=== PATIENT | male | born 1940 | race Caucasian/White ===

== ENCOUNTER 2016-07-02 16:24 | Inpatient (IN) | payer MEDICARE ==
[~2016-07-02] VITALS: Ht 175.3 cm; Wt 91.4 kg
[2016-07-02 16:26] VITALS: BP 189/89; PULSE 55; RESP 17; TEMP 98.6; O2SAT 96
[2016-07-02 16:34] VITALS: RESP 17; O2SAT 97
--- NOTE | 2016-07-02 16:51 | PD ---
HPI Chief Complaint: Eye Problems/Injury Time Seen by Provider: 16:30 Travel History International Travel<30 days: No Contact w/Intl Traveler<30days: No Traveled to known affect area: No History of Present Illness HPI Patient is a 76-year-old male with history of coronary disease, A. fib, hypertension, hyperlipidemia,, who presents to emergency room from the [place] for evaluation of CVA. Patient reports that he has history of hemorrhagic stroke in the past, reports that he had his stroke on January 23, 1996. Patient reports that since yesterday afternoon around 2 PM, he has lost all his peripheral vision. Patient reports that he was watching TV when he lost his peripheral vision. Patient reports that since yesterday, he has been walking to the [place], reports that he has had pain around his eyes. Patient denies any weakness or numbness at this time. Reports that his vision improves mildly throughout the day, reports that he woke up today with peripheral vision loss. Patient reports that he went to the [place] for evaluation, reports that he was sent to the negative turner for an eye exam. Patient reports that he had his eyes dilated and evaluated by the negative turner, reports that his eyes were fine, reports concern for possible CVA. PFSH Past Medical History Hx Anticoagulant Therapy: Yes Cerebrovascular Accident: Yes Social History Tobacco Use: No Allergies-Medications (Allergen,Severity, Reaction): Coded Allergies: Demerol (Verified Allergy, Intermediate, Hives, 07/02/16) Reported Meds & Prescriptions Reported Meds & Active Scripts Active Reported Travatan Z Opth Drops (Travoprost) 0.004 % Soln 1 Drop EACH EYE HS Lisinopril 20 Mg Tab 20 Mg PO DAILY Pravastatin 40 Mg Tab 40 Mg PO HS Omeprazole 20 Mg Cap 20 Mg PO DAILY Alavert (Loratadine) 10 Mg Tab 10 Mg PO DAILY Mobic (Meloxicam) 15 Mg Tab 15 Mg PO DAILY Flonase Nasal Dexter (Fluticasone Nasal Dexter) 50 Mcg/Act Dexter 2 Dexter EACH NARE HS Metoprolol Tartrate 50 Mg Tab 50 Mg PO BID Amlodipine (Amlodipine Besylate) 5 Mg Tab 5 Mg PO DAILY Dorzolamide-Timolol Opth Drops 22.3-6.8 Mg/Ml Soln 1 Drop EACH EYE BID Review of Systems General / Constitutional: No: Fever Eyes: No: Visual changes HENT: No: Headaches Cardiovascular: No: Chest Pain or Discomfort Respiratory: No: Shortness of Breath Gastrointestinal: No: Abdominal Pain Genitourinary: No: Dysuria Musculoskeletal: No: Pain Skin: No Rash Neurologic: Positive: Ataxia, Headache, Other (peripheral vision loss), No: Weakness Psychiatric: No: Depression Endocrine: No: Polydipsia Hematologic/Lymphatic: No: Easy Bruising Physical Exam Narrative GENERAL: mild distress SKIN: Warm and dry. HEAD: Atraumatic. Normocephalic. EYES: Pupils equal and round. No scleral icterus. No injection or drainage. patient with peripheral vision loss ENT: No nasal bleeding or discharge. Mucous membranes pink and moist. NECK: Trachea midline. No JVD. CARDIOVASCULAR: Regular rate and rhythm. No murmur appreciated. RESPIRATORY: No accessory muscle use. Clear to auscultation. Breath sounds equal bilaterally. GASTROINTESTINAL: Abdomen soft, non-tender, nondistended. Hepatic and splenic margins not palpable. MUSCULOSKELETAL: No obvious deformities. No clubbing. No cyanosis. No edema. NEUROLOGICAL: Awake and alert. Patient with peripheral vision loss. Motor grossly within normal limits. Normal speech. PSYCHIATRIC: Appropriate mood and affect; insight and judgment normal. Data Data Last Documented VS Vital Signs Date Time Temp Pulse Resp B/P Pulse Ox O2 Delivery O2 Flow Rate FiO2 07/02/16 16:34 17 97 Room Air 07/02/16 16:34 55 07/02/16 16:26 98.6 189/89 Orders Electrocardiogram (07/02/16 16:30) Prothrombin Time / Inr (Pt) (07/02/16 16:30) Act Partial Throm Time (Ptt) (07/02/16 16:30) Complete Blood Count With Diff (07/02/16 16:30) Comprehensive Metabolic Panel (07/02/16 16:30) Creatine Kinase (Cpk) (07/02/16 16:30) Troponin I (07/02/16 16:30) Urinalysis - C+S If Indicated (07/02/16 16:30) Ct Brain W/O Iv Contrast(Rout) (07/02/16 16:30) Chest, Single Ap (07/02/16 16:30) Ecg Monitoring (07/02/16 16:30) Iv Access Insert/Monitor (07/02/16 16:30) Oximetry (07/02/16 16:30) Blood Glucose (07/02/16 16:30) Aspirin (Aspirin) (07/02/16 17:30) Labs Laboratory Tests Test 07/02/16 16:30 White Blood Count 9.7 TH/MM3 Red Blood Count 5.09 MIL/MM3 Hemoglobin 15.5 GM/DL Hematocrit 45.6 % Mean Corpuscular Volume 89.6 FL Mean Corpuscular Hemoglobin 30.4 PG Mean Corpuscular Hemoglobin 33.9 % Concent Red Cell Distribution Width 14.1 % Platelet Count 248 TH/MM3 Mean Platelet Volume 8.3 FL Neutrophils (%) (Auto) 61.9 % Lymphocytes (%) (Auto) 24.7 % Monocytes (%) (Auto) 10.8 % Eosinophils (%) (Auto) 2.2 % Basophils (%) (Auto) 0.4 % Neutrophils # (Auto) 6.0 TH/MM3 Lymphocytes # (Auto) 2.4 TH/MM3 Monocytes # (Auto) 1.1 TH/MM3 Eosinophils # (Auto) 0.2 TH/MM3 Basophils # (Auto) 0.0 TH/MM3 CBC Comment DIFF FINAL Differential Comment Prothrombin Time 10.6 SEC Prothromb Time International 1.0 RATIO Ratio Activated Partial 25.7 SEC Thromboplast Time Sodium Level 138 MEQ/L Potassium Level 5.0 MEQ/L Chloride Level 103 MEQ/L Carbon Dioxide Level 24.5 MEQ/L Anion Gap 11 MEQ/L Blood Urea Nitrogen 18 MG/DL Creatinine 1.20 MG/DL Estimat Glomerular Filtration 59 ML/MIN Rate Random Glucose 81 MG/DL Calcium Level 8.9 MG/DL Total Bilirubin 0.6 MG/DL Aspartate Amino Transf 43 U/L (AST/SGOT) Alanine Aminotransferase 42 U/L (ALT/SGPT) Alkaline Phosphatase 55 U/L Total Creatine Kinase 143 U/L Troponin I 0.03 NG/ML Total Protein 7.5 GM/DL Albumin 3.9 GM/DL MDM Medical Decision Making Medical Screen Exam Complete: Yes Emergency Medical Condition: Yes Interpretation(s) EKG at 1638: Sinus bradycardia at 55 beats a minute, first-degree AV block, no specific ST-T wave changes Vital Signs Date Time Temp Pulse Resp B/P Pulse Ox O2 Delivery O2 Flow Rate FiO2 07/02/16 16:34 17 97 Room Air 07/02/16 16:34 55 17 07/02/16 16:26 98.6 55 17 189/89 96 Differential Diagnosis CVA, glaucoma, retinal artery detachment, arrhythmia, electrolyte abnormality Narrative Course Patient is a 76-year-old male who was sent to the emergency room by the [place] negative turner for evaluation of possible CVA. Patient reports that he lost his peripheral vision around 2 PM yesterday afternoon while watching television. Patient reports that he has had been walking into [place] since yesterday. [facility] he was [facility] see the negative turner and had his eyes dilated. Patient was found to have an incomplete left homonomyous Hemianopsia. Patient was sent to the ER for stat imaging as well as for possible MRI/MRA to rule out CVA Blood sugar ordered CT of the head ordered Labs as well as EKG ordered, patient will be evaluated for possible CVA Last Impressions Head CT 07/02/16 163 Signed Impressions: Service Date/Time: Saturday, July 02, 2016 17:06 - CONCLUSION: 1. There is an area of low density in the medial right occipital lobe. This could represent an area of recent or subacute ischemia. MRI could help determine the age and further characterize, if needed. 2. There is a cephalization versus atri of the medial inferior left cerebellum. 3. Near-complete opacification of the right maxillary sinus with partial extension into the nasal cavity. Suggest correlation with clinical examination and it would be reasonable to further evaluate with elective outpatient CT. Juan Manuel Vines MD Chest X-Ray 07/02/16 1630 Signed Impressions: Service Date/Time: Saturday, July 02, 2016 16:46 - CONCLUSION: No acute cardiopulmonary abnormality is identified. Juan Manuel Vines MD Reviewed all labs and studies with patient in detail. Patient with most likely CVA as there is an area of recent or subacute ischemia to medial right occipital lobe. Will admit for cva case reviewed with dr brothers who accepts pt to service Physician Communication Physician Communication Case reviewed with Dr. Brothers who accepts patient to service Diagnosis Primary Impression: CVA (cerebral vascular accident) Qualified Code: I63.9 - Cerebrovascular accident (CVA), unspecified mechanism Additional Impression: incomplete left homonomyous hemianopsia Admitting Information Admitting Physician Requests: Admit Haley Love DO Jul 02, 2016 16:51
--- NOTE | 2016-07-02 16:56 | RADRPT ---
EXAM DATE/TIME: 07/02/2016 16:46 [facility] COMPARISON: No previous studies available for comparison. INDICATIONS : Short of breath, CVA, lost vision in both eyes today MEDICAL HISTORY : W SURGICAL HISTORY : lower extremity surgery ENCOUNTER: Initial ACUITY: 1 day PAIN SCORE: 0/10 LOCATION: Bilateral chest FINDINGS: Portable AP view of the chest demonstrates a normal-sized cardiac silhouette. No effusion, consolidat ion, or pneumothorax is visualized. The bones and soft tissues demonstrate no acute abnormality. CONCLUSION: No acute cardiopulmonary abnormality is identified. Juan Manuel Vines MD on July 02, 2016 at 16:54 Board Certified Radiologist. This report was verified electronically.
[2016-07-02 17:10] LABS: BASOPHIL % 0.4 % (0.0-2.0); EOSINOPHIL # 0.2 TH/MM3 (0-0.4); EOSINOPHIL % 2.2 % (0.0-4.0); HEMATOCRIT 45.6 % (39.0-51.0); HEMO FLAGS DIFF FINAL; LYMPH % 24.7 % (9.0-44.0); LYMPHOCYTE # 2.4 TH/MM3 (1.0-4.8); MEAN CELL VOLUME 89.6 FL (80.0-100.0); MEAN CORPUSCULAR HEMOGLOBIN 30.4 PG (27.0-34.0); MEAN CORPUSCULAR HGB CONC 33.9 % (32.0-36.0); MONO % 10.8 % (0.0-8.0); NEUT % 61.9 % (16.0-70.0); PLATELET COUNT 248 TH/MM3 (150-450); RED BLOOD COUNT 5.09 MIL/MM3 (4.50-5.90); RED CELL DISTRIBUTION WIDTH 14.1 % (11.6-17.2); WHITE BLOOD COUNT 9.7 TH/MM3 (4.0-11.0)
[2016-07-02] MEDS ORDERED: LATA0.002 EACH EYE (17:16)
[2016-07-02] MEDS ORDERED: ALAV10TA10 PO (17:16)
[2016-07-02] MEDS ORDERED: OMEP20CA2 PO (17:16)
[2016-07-02] MEDS ORDERED: MOBI15TA PO (17:16)
[2016-07-02] MEDS ORDERED: ERYTOIN10 EACH EYE (17:16)
[2016-07-02] MEDS ORDERED: AMLO5TAB2 PO (17:16)
[2016-07-02] MEDS ORDERED: PRAV80TA2 PO (17:16)
[2016-07-02] MEDS ORDERED: FLUT1SPR5 EACH NARE (17:16)
[2016-07-02] MEDS ORDERED: DORZ2SOL15 EACH EYE (17:16)
[2016-07-02] MEDS ORDERED: LISI40TA PO (17:16)
[2016-07-02] MEDS ORDERED: METO50TA PO (17:16)
--- NOTE | 2016-07-02 17:18 | RADRPT ---
EXAM DATE/TIME: 07/02/2016 17:06 [facility] COMPARISON: No previous studies available for comparison. INDICATIONS : Peripheral vision loss yesterday. RADIATION DOSE: 51.32 CTDIvol (mGy) MEDICAL HISTORY : Stroke. SURGICAL HISTORY : None. ENCOUNTER: Initial ACUITY: 1 day PAIN SCALE: 5/10 LOCATION: Bilateral frontal head TECHNIQUE: Multiple contiguous axial images were obtained of the head. Using automated exposure control and adj ustment of the mA and/or kV according to patient size, radiation dose was kept as low as reasonably a chievable to obtain optimal diagnostic quality images. FINDINGS: CEREBRUM: There is mild cerebral atrophy. Ventricles are normal in size. There is mild low density in the media l right occipital lobe. No evidence of midline shift, mass lesion, hemorrhage or acute infarction. No extra-axial fluid collections are seen. POSTERIOR FOSSA: The cerebellum and brainstem demonstrate no acute finding. There is atrophy versus encephalomalacia o f the medial left cerebellum. The 4th ventricle is midline. The cerebellopontine angle is unremarka ble. EXTRACRANIAL: There is near-complete opacification of the right maxillary sinus with possible extension into the ri ght nasal cavity. SKULL: The calvaria is intact. No evidence of skull fracture. CONCLUSION: 1. There is an area of low density in the medial right occipital lobe. This could represent an area o f recent or subacute ischemia. MRI could help determine the age and further characterize, if needed. 2. There is a cephalization versus atri of the medial inferior left cerebellum. 3. Near-complete opacification of the right maxillary sinus with partial extension into the nasal cav ity. Suggest correlation with clinical examination and it would be reasonable to further evaluate wit h elective outpatient CT. Juan Manuel Vines MD on July 02, 2016 at 17:12 Board Certified Radiologist. This report was verified electronically.
[2016-07-02 17:25] LABS: APTT (PATIENT) 25.7 SEC (24.3-30.1); PROTHROMBIN TIME - PATIENT 10.6 SEC (9.8-11.6)
[2016-07-02] MEDS ORDERED: ASPIRIN 325 MG TAB PO ONE (17:30)
[2016-07-02 17:35] LABS: ALKALINE PHOSPHATASE 55 U/L (45-117); ALT (GPT) 42 U/L (12-78); ANION GAP 11 MEQ/L (5-15); AST (GOT) 43 U/L (15-37); BICARBONATE 24.5 MEQ/L (21.0-32.0); BLOOD UREA NITROGEN 18 MG/DL (7-18); CHLORIDE 103 MEQ/L (98-107); CREATINE KINASE 143 U/L (39-308); GLOMERULAR FILTRATION RATE 59 ML/MIN (>89); SODIUM (NA) 138 MEQ/L (136-145); TOTAL BILIRUBIN ADULT 0.6 MG/DL (0.2-1.0)
[2016-07-02] MEDS ORDERED: TRAV0.00 EACH EYE (17:38)
[2016-07-02] MEDS ORDERED: LISI-515 PO (17:38)
[2016-07-02] MEDS ORDERED: PRAV40TA2 PO (17:38)
[2016-07-02] MEDS: SODIUM CHLOR 0.9% 1000 ML INJ 1,000 ML IV SCH ×2 (17:57→23:35)
[2016-07-02] MEDS ORDERED: NALOXONE HCL 0.4 MG/ML AMP IV PRN (18:00)
[2016-07-02] MEDS ORDERED: SODIUM CHLORIDE 0.9% FLUSH 5 ML FLUSH FLUSH PRN (18:00)
[2016-07-02] MEDS ORDERED: METOCLOPRAMIDE HCL 10 MG/2 ML VIAL IV PUSH PRN (18:00)
[2016-07-02] MEDS ORDERED: BISACODYL 10 MG SUPP PR PRN (18:00)
[2016-07-02] MEDS: DOCUSATE SODIUM 100 MG CAP PO SCH (18:00)
[2016-07-02] MEDS ORDERED: ACETAMINOPHEN 325 MG TAB PO PRN (18:00)
[2016-07-02] MEDS ORDERED: ONDANSETRON HCL 4 MG/2 ML VIAL IVP PRN (18:00)
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
[2016-07-02 19:00] VITALS: BP 122/85; PULSE 52; RESP 16
[2016-07-02 19:07] LABS: BLOOD, URINE NEG (NEG); GLUCOSE,URINE NEG (NEG); KETONE, URINE NEG (NEG); NITRITE,URINE NEG (NEG); URINE COLOR YELLOW (YELLW/STRAW)
[2016-07-02 19:16] LABS: COMMENT (UR) CATH-CULT NOT IND; CULTURE IF INDICATED CATH CULTURE NOT IND
[2016-07-02] MEDS: ENOXAPARIN SODIUM 40 MG/0.4 ML SYRINGE SQ SCH (19:32)
[2016-07-02] MEDS: SODIUM CHLORIDE 0.9% FLUSH 5 ML FLUSH FLUSH SCH (21:00)
[2016-07-02] MEDS: METOPROLOL TARTRATE 50 MG TAB PO SCH (21:00)
[2016-07-02] MEDS: PRAVASTATIN SOD 40 MG TAB PO SCH (21:00)
[2016-07-02 22:00] VITALS: BP 142/81; PULSE 63; PULSE 81; RESP 20; TEMP 97; O2SAT 97
[2016-07-02] MEDS: FLUTICASONE PROPIONATE 50 MCG/ACT 16 GM NASAL SPRAY EACH NARE SCH (23:34)
[2016-07-02] MEDS: DORZOLAMIDE/TIMOLOL OPTH SOLN 10 ML BTL EACH EYE SCH (23:34)
[2016-07-02] MEDS: LATANOPROST 0.005% OPHT SOLN 2.5 ML BTL EACH EYE SCH (23:35)
[2016-07-03] VITALS (7 sets, daily range): BP systolic 107–146; BP diastolic 65–80; PULSE 47–62; RESP 17–19; TEMP 96.9–98.1; O2SAT 93–96
[2016-07-03 05:14] LABS: AUTOMATED NEUTROPHIL # 3.4 TH/MM3 (1.8-7.7); BASOPHIL % 0.4 % (0.0-2.0); EOSINOPHIL # 0.2 TH/MM3 (0-0.4); HEMATOCRIT 42.5 % (39.0-51.0); HEMO FLAGS DIFF FINAL; LYMPH % 28.1 % (9.0-44.0); LYMPHOCYTE # 1.7 TH/MM3 (1.0-4.8); MEAN CELL VOLUME 88.3 FL (80.0-100.0); MEAN CORPUSCULAR HEMOGLOBIN 30.2 PG (27.0-34.0); MEAN CORPUSCULAR HGB CONC 34.2 % (32.0-36.0); MONO % 11.4 % (0.0-8.0); NEUT % 57.1 % (16.0-70.0); PLATELET COUNT 205 TH/MM3 (150-450); RED BLOOD COUNT 4.81 MIL/MM3 (4.50-5.90); RED CELL DISTRIBUTION WIDTH 14.1 % (11.6-17.2)
[2016-07-03] MEDS: DOCUSATE SODIUM 100 MG CAP PO SCH ×3 (05:36→17:38)
[2016-07-03 05:40] LABS: PROTHROMBIN TIME - PATIENT 11.1 SEC (9.8-11.6)
[2016-07-03 06:05] LABS: ALKALINE PHOSPHATASE 50 U/L (45-117); ALT (GPT) 35 U/L (12-78); ANION GAP 7 MEQ/L (5-15); AST (GOT) 22 U/L (15-37); BICARBONATE 28.4 MEQ/L (21.0-32.0); BLOOD UREA NITROGEN 15 MG/DL (7-18); CHLORIDE 105 MEQ/L (98-107); FREE T4 1.17 NG/DL (0.76-1.46); GLOMERULAR FILTRATION RATE 65 ML/MIN (>89); HDL CHOLESTEROL 31.6 MG/DL (40.0-60.0); INDIRECT BILIRUBIN 0.6 MG/DL (0.0-0.8); LDL CHOLESTEROL 43 MG/DL (0-99); POTASSIUM 4.9 MEQ/L (3.5-5.1); SODIUM (NA) 140 MEQ/L (136-145); TOTAL BILIRUBIN ADULT 0.8 MG/DL (0.2-1.0)
[2016-07-03] MEDS: METOPROLOL TARTRATE 50 MG TAB PO SCH ×2 (09:00→22:42)
[2016-07-03] MEDS: SODIUM CHLORIDE 0.9% FLUSH 5 ML FLUSH FLUSH SCH ×2 (09:00→22:42)
[2016-07-03] MEDS: LISINOPRIL 20 MG TAB PO SCH (09:15)
[2016-07-03] MEDS: ASPIRIN 325 MG TAB PO SCH (09:15)
[2016-07-03] MEDS: amLODIPine BESYLATE 5 MG TAB PO SCH (09:15)
[2016-07-03] MEDS: PANTOPRAZOLE SOD 20 MG DELAYED RELEASE TAB PO SCH (09:16)
[2016-07-03] MEDS: DORZOLAMIDE/TIMOLOL OPTH SOLN 10 ML BTL EACH EYE SCH ×2 (09:17→22:44)
[2016-07-03] MEDS: SODIUM CHLOR 0.9% 1000 ML INJ 1,000 ML IV SCH ×2 (12:05→22:42)
[2016-07-03 13:39] LABS: HEMOGLOBIN A1a 1.3 %; HEMOGLOBIN A1b 1.8 %; HEMOGLOBIN Ao 84.9 %; HEMOGLOBIN LA1C 1.8 %; HEMOGLOBIN P3 3.7 %
--- NOTE | 2016-07-03 14:43 | HHI.PR ---
Subjective Remarks This is a pleasant 76 y/o male with CAD, Atrial Fibrillation, Hypertension, Hyperlipidemia Hemorrhagic CVA in 1995, came to ER for evaluation of probable CVA, had sudden loss of vision, continued with blurred vision, He went to the [facility] he has history of Glaucoma, he was seen by Ophthalmology specialist at [facility] who reported concern for CVA and sent the patient to ER, Patient denies any numbness or weakness. Denies pain and discomfort. Denies SOB/ dyspnea. Denies chest pain, palpitations, headaches on exam. Denies fevers, chills, n/v/d. Chest x-ray showed no acute cardiopulmonary abnormality identified. CT head showed 1. There is an area of low-density in the medial right occipital lobe. This could represent an area of recent or subacute ischemia. Near complete opacification of the right maxillary sinus with partial extension into the nasal cavity. he will need to follow with ENT at discharge. Objective Vital Signs Date Time Temp Pulse Resp B/P Pulse Ox O2 Delivery O2 Flow Rate FiO2 07/03/16 12:01 97.2 60 17 138/80 96 07/03/16 11:48 47 07/03/16 11:20 96.9 56 18 139/79 95 07/03/16 08:25 97.1 61 17 146/77 95 07/03/16 04:00 98.1 57 18 107/68 94 07/02/16 22:00 63 07/02/16 22:00 97.0 81 20 142/81 97 07/02/16 19:00 52 16 122/85 07/02/16 16:34 17 97 Room Air 07/02/16 16:34 55 17 07/02/16 16:26 98.6 55 17 189/89 96 I/O 07/02/16 07/02/16 07/02/16 07/03/16 07/03/16 07/03/16 07:00 15:00 23:00 07:00 15:00 23:00 Output Total 1000 ml Balance -1000 ml Output Urine Total 1000 ml # Voids 2 # Bowel Movements 1 Result Diagram: 07/03/16 0453 07/03/16 0453 Imaging Last Impressions Head CT 07/02/16 1630 Signed Impressions: Service Date/Time: Saturday, July 02, 2016 17:06 - CONCLUSION: 1. There is an area of low density in the medial right occipital lobe. This could represent an area of recent or subacute ischemia. MRI could help determine the age and further characterize, if needed. 2. There is a cephalization versus atri of the medial inferior left cerebellum. 3. Near-complete opacification of the right maxillary sinus with partial extension into the nasal cavity. Suggest correlation with clinical examination and it would be reasonable to further evaluate with elective outpatient CT. Juan Manuel Vines MD Chest X-Ray 07/02/16 1630 Signed Impressions: Service Date/Time: Saturday, July 02, 2016 16:46 - CONCLUSION: No acute cardiopulmonary abnormality is identified. Juan Manuel Vines MD Procedures No procedure performed to the patient. Other Results Laboratory Tests Test 07/02/16 07/02/16 07/03/16 16:30 18:48 04:53 Activated Partial 25.7 SEC Thromboplast Time Total Creatine Kinase 143 U/L Urine Color YELLOW Urine Turbidity CLEAR Urine pH 7.0 Urine Specific [place] 1.017 Urine Protein NEG mg/dL Urine Glucose (UA) NEG mg/dL Urine Ketones NEG mg/dL Urine Occult Blood NEG Urine Nitrite NEG Urine Bilirubin NEG Urine Urobilinogen LESS THAN 2.0 MG/DL Urine Leukocyte Esterase NEG Urine RBC 1 /hpf Urine WBC LESS THAN 1 /hpf Microscopic Urinalysis Comment CATH-CULT NOT IND White Blood Count 6.0 TH/MM3 Red Blood Count 4.81 MIL/MM3 Hemoglobin 14.5 GM/DL Hematocrit 42.5 % Mean Corpuscular Volume 88.3 FL Mean Corpuscular Hemoglobin 30.2 PG Mean Corpuscular Hemoglobin 34.2 % Concent Red Cell Distribution Width 14.1 % Platelet Count 205 TH/MM3 Mean Platelet Volume 7.8 FL Neutrophils (%) (Auto) 57.1 % Lymphocytes (%) (Auto) 28.1 % Monocytes (%) (Auto) 11.4 % Eosinophils (%) (Auto) 3.0 % Basophils (%) (Auto) 0.4 % Neutrophils # (Auto) 3.4 TH/MM3 Lymphocytes # (Auto) 1.7 TH/MM3 Monocytes # (Auto) 0.7 TH/MM3 Eosinophils # (Auto) 0.2 TH/MM3 Basophils # (Auto) 0.0 TH/MM3 CBC Comment DIFF FINAL Differential Comment Prothrombin Time 11.1 SEC Prothromb Time International 1.0 RATIO Ratio Sodium Level 140 MEQ/L Potassium Level 4.9 MEQ/L Chloride Level 105 MEQ/L Carbon Dioxide Level 28.4 MEQ/L Anion Gap 7 MEQ/L Blood Urea Nitrogen 15 MG/DL Creatinine 1.10 MG/DL Estimat Glomerular Filtration 65 ML/MIN Rate Random Glucose 92 MG/DL Calcium Level 8.8 MG/DL Total Bilirubin 0.8 MG/DL Direct Bilirubin 0.2 MG/DL Indirect Bilirubin 0.6 MG/DL Aspartate Amino Transf 22 U/L (AST/SGOT) Alanine Aminotransferase 35 U/L (ALT/SGPT) Alkaline Phosphatase 50 U/L Troponin I 0.04 NG/ML Total Protein 6.4 GM/DL Albumin 3.5 GM/DL Triglycerides Level 162 MG/DL Cholesterol Level 107 MG/DL LDL Cholesterol 43 MG/DL HDL Cholesterol 31.6 MG/DL Cholesterol/HDL Ratio 3.38 RATIO Vitamin B12 Level 1087 PG/ML Free Thyroxine 1.17 NG/DL Thyroid Stimulating Hormone 1.670 uIU/ML 3rd Gen Objective Remarks GENERAL: This is a well-nourished, well-developed patient, in no apparent distress. SKIN: No rashes, ecchymoses or lesions. Cool and dry. HEAD: Atraumatic. Normocephalic. Tenderness Right posterior cervical area. EYES: Pupils equal round and reactive. 4mm dilated. Extraocular motions intact. No scleral icterus. No injection or drainage. Left slight lid elevation. Left peripheral vision absent ENT: Nose without bleeding, boggy mucosa. Throat without erythema. Tongue with fissures. Tongue midline able to move [id number] without difficulty. Uvula midline. Airway patent. NECK: Trachea midline. No JVD or lymphadenopathy. Supple, nontender, no meningeal signs. CARDIOVASCULAR: Bradycardia with 2/6 systolic murmurs, gallops, or rubs. RESPIRATORY: Clear to auscultation. Breath sounds equal bilaterally. No wheezes , rales, or rhonchi. GASTROINTESTINAL: Abdomen soft, non-tender, nondistended. Bowel sounds active 4. MUSCULOSKELETAL: Extremities without clubbing, cyanosis, or edema. No joint tenderness, effusion, or edema noted. No calf tenderness. Negative Homans sign bilaterally. NEUROLOGICAL: Awake and alert. Cranial nerves II through XII intact. Motor and sensory grossly within normal limits. Five out of 5 muscle strength in all muscle groups. Normal speech. Medications and IVs Current Medications Medications (Trade) Dose Ordered Sig/Blu Route Start Time Stop Time Status Last Admin (Norvasc) 5 mg DAILY PO 07/03/16 09:00 07/03/16 09:15 (Cosopt 2-0.5% Opth Soln) 1 drop BID EACH EYE 07/02/16 21:00 07/03/16 09:17 (Flonase Duran Spr) 2 spray HS EACH NARE 07/02/16 21:00 07/02/16 23:34 (Prinivil) 20 mg DAILY PO 07/03/16 09:00 07/03/16 09:15 (Lopressor) 50 mg BID PO 07/02/16 21:00 (Pravachol) 40 mg HS PO 07/02/16 21:00 (Protonix) 20 mg DAILY PO 07/03/16 09:00 07/03/16 09:16 (Xalatan 0.005% Opth Soln) 1 drop HS EACH EYE 07/02/16 21:00 07/02/16 23:35 Aspirin 325 mg 325 mg DAILY PO 07/03/16 09:00 07/03/16 09:15 (NS 1000 ml Inj) 1,000 ml @ 100 mls/hr Q10H IV 07/02/16 17:57 07/02/16 17:57 (NS Flush) 2 ml UNSCH PRN FLUSH 07/02/16 18:00 (NS Flush) 2 ml BID FLUSH 07/02/16 21:00 07/02/16 21:00 (Tylenol) 650 mg Q4H PRN PO 07/02/16 18:00 (Zofran Inj) 4 mg Q6H PRN IVP 07/02/16 18:00 (Reglan Inj) 5 mg Q6H PRN IV PUSH 07/02/16 18:00 (Dulcolax Supp) 10 mg DAILY PRN [place] 07/02/16 18:00 (Colace) 100 mg Q12H PO 07/02/16 18:00 (Lovenox Inj) 40 mg Q24H SQ 07/02/16 18:00 07/02/16 19:32 (Narcan Inj) 0.4 mg UNSCH PRN IV 07/02/16 18:00 A/P Assessment and Plan (1) CVA (cerebral vascular accident) ICD Code: I63.9 Status: Acute (2) HLD (hyperlipidemia) ICD Code: E78.5 Status: Chronic (3) HTN (hypertension) ICD Code: I10 Status: Chronic (4) A-fib ICD Code: I48.91 Status: Chronic 1. Right occipital lobe CVA asked for MRI, awaiting recommendations by Neurology specialist, CXR showed no acute Cardiopulmonary pathology, status post evaluation by PT/OT and ST no further management, awaiting evaluation by Neurology specialist. continue Aspirin 325 mg daily. 2. CAD stable at this time 3. Total opacification of Right maxillary sinus, will need ENT specialist consult at discharge will start Amoxacillin and anti histamine and follow as outpatient. 4. Hyperlipidemia 5. Hypertension controlled. 6. Atrial Fibrillation rate controlled not on anticoagulation on admission in sinus rhythm and continue sinus rhythm. he was on Warfarin from [id number]. 7. Glaucoma continue home medicines DVT prop Lovenox 40 mg subcutaneous Q24. asked for Brain MRI and awaiting for Neurology specialist consult. Discharge Planning Expected in the next one to two days. Preston Zamarripa MD Jul 03, 2016 14:43 - Neurochecks every 4 hours - Neurology consult input appreciated. - PT to evaluate activities. - BP control. Place on telemetry. Recent BP 189/89. Repeat BP 122/68 - Check risk factors. Check TSH, lipid profile, hemoglobin A1c, vitamin B12 , vitamin B 1. - Check serial troponin. - EKG sinus bradycardia with first-degree AV heart block rate of 55. - Recheck labs tomorrow CBC CMP. CAD HLD HTN - restart home medications. Norvasc 5 mg daily, lisinopril 20 mg daily, metoprolol 50 mg twice a day. - ASA 325 mg daily. Continue pravastatin 40 mg daily at bedtime. - Monitor BP trend. Recent BP 189/89. Repeat BP 122/68 - Patient is bradycardic. Reports normal heart rate 48-60s. He keeps a log of his blood pressure and heart rate daily which is with him. A. fib - rate controlled. Now on sinus rhythm on the EKG. - Previously was on Coumadin from [id number] Glaucoma - continue with eyedrops home medication. Sinusitis, allergies - continue fluticasone nasal spray. DVT prop Lovenox 40 mg subcutaneous Q24. Preston Zamarripa MD Jul 03, 2016 14:43
--- NOTE | 2016-07-03 15:32 | EKG ---
Date Performed: 07/02/2016 Time Performed: 16:38:18 PTAGE: 76 years EKG: SINUS BRADYCARDIA WITH FIRST DEGREE AV BLOCK BORDERLINE LEFT AXIS DEVIATION NONSPECIFIC ST & T-WAVE ABNORMALITY ABNORMAL ECG NO PREVIOUS TRACING DOCTOR: Wally Carlos Interpretating Date/Time 07/03/2016 15:31:25
--- NOTE | 2016-07-03 16:46 | RADRPT ---
EXAM DATE/TIME: 07/03/2016 16:13 [facility] COMPARISON: CT BRAIN W/O CONTRAST, July 02, 2016, 17:06. INDICATIONS : Blurred vision. MEDICAL HISTORY : Hypertension. Cardiovascular disease CVA SURGICAL HISTORY : Cholecystectomy. ENCOUNTER: Initial ACUITY: 1 day PAIN SCORE: 0/10 LOCATION: cranial TECHNIQUE: Multiplanar, multisequence MRI of the brain was performed without contrast. FINDINGS: CEREBRUM: Small area of T2 signal abnormality seen within the right occipital lobe consistent with acute infarc tion The ventricles are normal for age. No evidence of midline shift, mass lesion, hemorrhage or acu te infarction. No extraaxial fluid collections are seen. The pituitary gland and suprasellar cister n are normal in configuration. WHITE MATTER: Scattered T2 bright signal abnormalities are seen in the white matter. POSTERIOR FOSSA: Brainstem intact. Old bilateral cerebellar infarcts. The 4th ventricle is midline. The cerebellopont ine angle is unremarkable. The cerebellar tonsils are normal in position. DIFFUSION IMAGING: Restricted diffusion in the right occipital lobe. There is evidence of acute infarction. EXTRACRANIAL: The visualized portions of the orbits are unremarkable. Complete opacification right maxillary sinus CONCLUSION: 1. Acute infarct right occipital lobe. No midline shift or mass effect. 2. Old cerebellar infarcts. 3. Complete opacification right maxillary sinus. Reuben Crabtree MD on July 03, 2016 at 16:41 Board Certified Radiologist. This report was verified electronically.
--- NOTE | 2016-07-03 17:10 | RADRPT ---
EXAM DATE/TIME: 07/03/2016 16:13 [facility] COMPARISON: No previous studies available for comparison. INDICATIONS : Stroke. Vision loss. MEDICAL HISTORY : Hypertension. SURGICAL HISTORY : Cholecystectomy. Appendectomy. Total knee replacement, right. ENCOUNTER: Initial ACUITY: 2 day PAIN SCORE: 0/10 LOCATION: cranial Please note a normal MRA of the brain does not entirely exclude the possibility of a small aneurysm, nor the possibility of distal intracranial vessel disease. TECHNIQUE: 3D time of flight MRA was performed. Source images, multiplanar STS MIP, and 3D volume MIP reconstru ctions were reviewed. FINDINGS: There is excellent visualization of the major intracranial arteries out to the second-order branch ve ssels. There is no evidence for aneurysm, vessel truncation or stenosis, and no evidence for vascula r malformation. No anterior communicating artery. Posterior communicating arteries are not seen. Vert ebrobasilar junction normal. Middle, posterior and anterior cerebral arteries are unremarkable. Dista l carotid arteries appear intact. CONCLUSION: 1. No significant stenosis or aneurysm. 2. Normal variants as described above. Reuben Crabtree MD on July 03, 2016 at 17:02 Board Certified Radiologist. This report was verified electronically.
[2016-07-03] MEDS: ENOXAPARIN SODIUM 40 MG/0.4 ML SYRINGE SQ SCH (17:37)
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
[2016-07-03] MEDS: PRAVASTATIN SOD 40 MG TAB PO SCH (22:42)
[2016-07-03] MEDS: FLUTICASONE PROPIONATE 50 MCG/ACT 16 GM NASAL SPRAY EACH NARE SCH (22:43)
[2016-07-03] MEDS: LATANOPROST 0.005% OPHT SOLN 2.5 ML BTL EACH EYE SCH (22:44)
--- NOTE | 2016-07-03 23:55 | RADRPT ---
EXAM DATE/TIME: 07/03/2016 22:10 [facility] COMPARISON: No previous studies available for comparison. INDICATIONS : Stroke. MEDICAL HISTORY : Hypercholesterolemia. Gastroesophageal reflux disease. CVA. Afib. Anticoagulant therapy. Chronic ba ck pain. SURGICAL HISTORY : Knee joint replacment. Rotator cuff surgery. ENCOUNTER: Initial ACUITY: 1 day PAIN SCORE: 0/10 LOCATION: Bilateral neck PEAK SYSTOLIC VELOCITIES (cm/sec): ICA/CCA RATIO: Right: 1.2 Left: 1.4 ICA: Right: 114 Left: 112 CCA: Right: 95 Left: 82 ECA: Right: 121 Left: 95 VERTEBRAL: Right: 50 antegrade Left: 50 antegrade Elevated flow velocities and ICA/CCA ratios have been found to correlate with increased degrees of vessel stenosis, calculated as percentage of diameter relative to a normal segment of distal ICA/CCA FINDINGS: RIGHT CAROTID: [place]ner calcified plaque at the origin of the internal carotid with scattered calcification in the com mon carotid.. The waveforms are within normal limits. LEFT CAROTID: Mild, scattered atherosclerotic calcified plaquing in the left carotid system. The waveforms are wit hin normal limits. VERTEBRAL ARTERIES: Antegrade flow is seen in both vertebral arteries. MISCELLANEOUS: None. CONCLUSION: 1. Calcified plaquing in both carotid systems, right greater than left. 2. However, no sonographic or Doppler findings of a hemodynamically significant stenosis. Antegrade f low in both vertebral arteries. Dilan De La Fuente MD on July 03, 2016 at 23:51 Board Certified Radiologist. This report was verified electronically.
[2016-07-04] VITALS (7 sets, daily range): BP systolic 119–161; BP diastolic 68–85; PULSE 53–72; RESP 16–19; TEMP 95.9–97.4; O2SAT 94–96
[2016-07-04] MEDS: DOCUSATE SODIUM 100 MG CAP PO SCH (06:00)
[2016-07-04] MEDS: DORZOLAMIDE/TIMOLOL OPTH SOLN 10 ML BTL EACH EYE SCH (08:57)
[2016-07-04] MEDS: LISINOPRIL 20 MG TAB PO SCH (08:58)
[2016-07-04] MEDS: SODIUM CHLORIDE 0.9% FLUSH 5 ML FLUSH FLUSH SCH (08:58)
[2016-07-04] MEDS: METOPROLOL TARTRATE 50 MG TAB PO SCH ×2 (08:58→09:00)
[2016-07-04] MEDS: amLODIPine BESYLATE 5 MG TAB PO SCH (08:58)
[2016-07-04] MEDS: PANTOPRAZOLE SOD 20 MG DELAYED RELEASE TAB PO SCH (08:58)
[2016-07-04] MEDS: ASPIRIN 325 MG TAB PO SCH (08:58)
[2016-07-04] MEDS: SODIUM CHLOR 0.9% 1000 ML INJ 1,000 ML IV SCH (09:08)
[2016-07-04] MEDS ORDERED: LORATADINE 10 MG TAB PO SCH (14:45)
[2016-07-04] MEDS ORDERED: AMOXICILLIN 875 MG TAB PO SCH (15:00)
--- NOTE | 2016-07-04 15:10 | HHI.PR ---
Subjective Remarks This is a pleasant 76 y/o male with CAD, Atrial Fibrillation, Hypertension, Hyperlipidemia Hemorrhagic CVA in 1995, came to ER for evaluation of probable CVA, had sudden loss of vision, continued with blurred vision, He went to the [place] he has history of Glaucoma, he was seen by Ophthalmology specialist at [place] who reported concern for CVA and sent the patient to ER, Patient denies any numbness or weakness. Denies pain and discomfort. Denies SOB/ dyspnea. Denies chest pain, palpitations, headaches on exam. Denies fevers, chills, n/v/d. Chest x-ray showed no acute cardiopulmonary abnormality identified. CT head showed 1. There is an area of low-density in the medial right occipital lobe. This could represent an area of recent or subacute ischemia. Near complete opacification of the right maxillary sinus with partial extension into the nasal cavity. he will need to follow with ENT at discharge. Seen in his bedroom and discussed with nurse Miss Akers genevieve awaiting final recommendations by Neurology specialist for discharge. Objective Vital Signs Date Time Temp Pulse Resp B/P Pulse Ox O2 Delivery O2 Flow Rate FiO2 07/04/16 14:44 56 07/04/16 14:42 95.9 59 17 136/71 95 07/04/16 11:52 96.5 58 19 157/84 96 07/04/16 08:23 96.1 72 18 161/85 96 07/04/16 06:46 60 07/04/16 04:26 97.1 55 16 133/73 95 07/04/16 00:09 97.4 53 18 119/68 94 07/03/16 20:10 96.9 60 18 127/65 93 I/O 07/03/16 07/03/16 07/03/16 07/04/16 07/04/16 07/04/16 07:00 15:00 23:00 07:00 15:00 23:00 Intake Total 480 ml 725 ml Output Total 1000 ml 1200 ml Balance -1000 ml 480 ml -1200 ml 725 ml Intake Oral 480 ml 725 ml Output Urine Total 1000 ml 1200 ml # Voids 2 1 2 # Bowel Movements 1 1 Result Diagram: 07/03/16 0453 07/03/16 0453 Imaging Last Impressions Head Magnetic Resonance Angiography 07/03/16 0000 Signed Impressions: Service Date/Time: Sunday, July 03, 2016 16:13 - CONCLUSION: 1. No significant stenosis or aneurysm. 2. Normal variants as described above. Reuben Crabtree MD Carotid Artery Ultrasound 07/03/16 0000 Signed Impressions: Service Date/Time: Sunday, July 03, 2016 22:10 - CONCLUSION: 1. Calcified plaquing in both carotid systems, right greater than left. 2. However, no sonographic or Doppler findings of a hemodynamically significant stenosis. Antegrade flow in both vertebral arteries. Dilan De La Fuente MD Brain MRI 07/03/16 0000 Signed Impressions: Service Date/Time: Sunday, July 03, 2016 16:13 - CONCLUSION: 1. Acute infarct right occipital lobe. No midline shift or mass effect. 2. Old cerebellar infarcts. 3. Complete opacification right maxillary sinus. Reuben Crabtree MD Head CT 07/02/16 1630 Signed Impressions: Service Date/Time: Saturday, July 02, 2016 17:06 - CONCLUSION: 1. There is an area of low density in the medial right occipital lobe. This could represent an area of recent or subacute ischemia. MRI could help determine the age and further characterize, if needed. 2. There is a cephalization versus atri of the medial inferior left cerebellum. 3. Near-complete opacification of the right maxillary sinus with partial extension into the nasal cavity. Suggest correlation with clinical examination and it would be reasonable to further evaluate with elective outpatient CT. Juan Manuel Vines MD Chest X-Ray 07/02/16 1630 Signed Impressions: Service Date/Time: Saturday, July 02, 2016 16:46 - CONCLUSION: No acute cardiopulmonary abnormality is identified. Juan Manuel Vines MD Procedures No procedure performed to the patient. Other Results Laboratory Tests Test 07/02/16 07/02/16 07/03/16 07/03/16 16:30 18:48 04:53 06:00 Activated Partial 25.7 SEC Thromboplast Time Total Creatine Kinase 143 U/L Urine Color YELLOW Urine Turbidity CLEAR Urine pH 7.0 Urine Specific Hyrum 1.017 Urine Protein NEG mg/dL Urine Glucose (UA) NEG mg/dL Urine Ketones NEG mg/dL Urine Occult Blood NEG Urine Nitrite NEG Urine Bilirubin NEG Urine Urobilinogen LESS THAN 2.0 MG/DL Urine Leukocyte Esterase NEG Urine RBC 1 /hpf Urine WBC LESS THAN 1 /hpf Microscopic Urinalysis Comment CATH-CULT NOT IND White Blood Count 6.0 TH/MM3 Red Blood Count 4.81 MIL/MM3 Hemoglobin 14.5 GM/DL Hematocrit 42.5 % Mean Corpuscular Volume 88.3 FL Mean Corpuscular Hemoglobin 30.2 PG Mean Corpuscular Hemoglobin 34.2 % Concent Red Cell Distribution Width 14.1 % Platelet Count 205 TH/MM3 Mean Platelet Volume 7.8 FL Neutrophils (%) (Auto) 57.1 % Lymphocytes (%) (Auto) 28.1 % Monocytes (%) (Auto) 11.4 % Eosinophils (%) (Auto) 3.0 % Basophils (%) (Auto) 0.4 % Neutrophils # (Auto) 3.4 TH/MM3 Lymphocytes # (Auto) 1.7 TH/MM3 Monocytes # (Auto) 0.7 TH/MM3 Eosinophils # (Auto) 0.2 TH/MM3 Basophils # (Auto) 0.0 TH/MM3 CBC Comment DIFF FINAL Differential Comment Prothrombin Time 11.1 SEC Prothromb Time International 1.0 RATIO Ratio Sodium Level 140 MEQ/L Potassium Level 4.9 MEQ/L Chloride Level 105 MEQ/L Carbon Dioxide Level 28.4 MEQ/L Anion Gap 7 MEQ/L Blood Urea Nitrogen 15 MG/DL Creatinine 1.10 MG/DL Estimat Glomerular Filtration 65 ML/MIN Rate Random Glucose 92 MG/DL Hemoglobin A1c 6.0 % Calcium Level 8.8 MG/DL Total Bilirubin 0.8 MG/DL Direct Bilirubin 0.2 MG/DL Indirect Bilirubin 0.6 MG/DL Aspartate Amino Transf 22 U/L (AST/SGOT) Alanine Aminotransferase 35 U/L (ALT/SGPT) Alkaline Phosphatase 50 U/L Troponin I 0.04 NG/ML Total Protein 6.4 GM/DL Albumin 3.5 GM/DL Triglycerides Level 162 MG/DL Cholesterol Level 107 MG/DL LDL Cholesterol 43 MG/DL HDL Cholesterol 31.6 MG/DL Cholesterol/HDL Ratio 3.38 RATIO Vitamin B12 Level 1087 PG/ML Free Thyroxine 1.17 NG/DL Thyroid Stimulating Hormone 1.670 uIU/ML 3rd Gen C-Reactive Protein 0.56 MG/DL Test 07/03/16 21:33 Erythrocyte Sedimentation Rate 5 mm/hr Objective Remarks GENERAL: Obesity in no distress. SKIN: No rashes, ecchymoses or lesions. Cool and dry. HEAD: Atraumatic. Normocephalic. EYES: Pupils equal round and reactive. ENT: Nose without bleeding, boggy mucosa. Throat without erythema. NECK: Trachea midline. No JVD or lymphadenopathy. Supple, nontender. CARDIOVASCULAR: normal sinus rhythm, no murmur RESPIRATORY: Clear to auscultation. Breath sounds equal bilaterally. No wheezes , rales, or rhonchi. GASTROINTESTINAL: Abdomen soft, non-tender, nondistended. Bowel sounds present. MUSCULOSKELETAL: Extremities without clubbing, cyanosis, or edema. NEUROLOGICAL: Awake and alert. no focal deficits. Medications and IVs Current Medications Medications (Trade) Dose Ordered Sig/Blu Route Start Time Stop Time Status Last Admin (Norvasc) 5 mg DAILY PO 07/03/16 09:00 07/04/16 08:58 (Cosopt 2-0.5% Opth Soln) 1 drop BID EACH EYE 07/02/16 21:00 07/04/16 08:57 (Flonase Duran Spr) 2 spray HS EACH NARE 07/02/16 21:00 07/03/16 22:43 (Prinivil) 20 mg DAILY PO 07/03/16 09:00 07/04/16 08:58 (Lopressor) 50 mg BID PO 07/02/16 21:00 07/03/16 22:42 (Pravachol) 40 mg HS PO 07/02/16 21:00 07/03/16 22:42 (Protonix) 20 mg DAILY PO 07/03/16 09:00 07/04/16 08:58 (Xalatan 0.005% Opth Soln) 1 drop HS EACH EYE 07/02/16 21:00 07/03/16 22:44 Aspirin 325 mg 325 mg DAILY PO 07/03/16 09:00 07/04/16 08:58 (NS 1000 ml Inj) 1,000 ml @ 100 mls/hr Q10H IV 07/02/16 17:57 07/03/16 22:42 (NS Flush) 2 ml UNSCH PRN FLUSH 07/02/16 18:00 (NS Flush) 2 ml BID FLUSH 07/02/16 21:00 07/03/16 22:42 (Tylenol) 650 mg Q4H PRN PO 3/6/17 18:00 (Zofran Inj) 4 mg Q6H PRN IVP 07/02/16 18:00 (Reglan Inj) 5 mg Q6H PRN IV PUSH 07/02/16 18:00 (Dulcolax Supp) 10 mg DAILY PRN IN 07/02/16 18:00 (Colace) 100 mg Q12H PO 07/02/16 18:00 (Lovenox Inj) 40 mg Q24H SQ 07/02/16 18:00 07/03/16 17:37 (Narcan Inj) 0.4 mg UNSCH PRN IV 07/02/16 18:00 (Trimox) 875 mg Q12HR PO 07/04/16 15:00 (Claritin) 10 mg DAILY PO 07/04/16 14:45 A/P Assessment and Plan (1) CVA (cerebral vascular accident) ICD Code: I63.9 Status: Acute (2) HLD (hyperlipidemia) ICD Code: E78.5 Status: Chronic (3) HTN (hypertension) ICD Code: I10 Status: Chronic (4) A-fib ICD Code: I48.91 Status: Chronic 1. Right occipital lobe CVA asked for MRI, awaiting recommendations by Neurology specialist, CXR showed no acute Cardiopulmonary pathology, status post evaluation by PT/OT and ST no further management, awaiting final recommendations by Neurology specialist at this time Echocardiogram is performed. 2. CAD stable at this time 3. Total opacification of Right maxillary sinus, will need ENT specialist consult at discharge will start Amoxacillin and anti histamine and follow as outpatient. 4. Hyperlipidemia to continue home medicines. 5. Hypertension controlled. 6. Atrial Fibrillation rate controlled not on anticoagulation on admission in sinus rhythm and continue sinus rhythm. he was on Warfarin from [id number]. 7. Glaucoma continue home medicines DVT prop Lovenox 40 mg subcutaneous Q24. awaiting for Neurology specialist consult. Discussed with patient and with nurse Miss Akers Discharge Planning Expected later today or in am tomorrow Preston Zamarripa MD Jul 04, 2016 15:10
--- NOTE | 2016-07-04 15:50 | EC ---
Study Study Date:07/04/2016 STUDY CONCLUSIONS SUMMARY - Left ventricle: The cavity size was normal. Wall thickness was increased in a pattern of mild LVH. There was concentric hypertrophy. Systolic function was normal. The estimated ejection fraction was in the range of 60% to 65%. Wall motion was normal; there were no regional wall motion abnormalities. Features are consistent with a pseudonormal left ventricular filling pattern, with concomitant abnormal relaxation and increased filling pressure (grade 2 diastolic dysfunction). - Aortic valve: Mild regurgitation. - Left atrium: The atrium was mildly dilated. - Right ventricle: The cavity size was mildly dilated. If LV function is below 40, please consider prescribing an ACEI or ARB or document rationale for non-use. PROCEDURE DATA STUDY STATUS: Elective. Procedure: Transthoracic echocardiography. Image quality was good. Scanning was performed from the parasternal, apical, and subcostal acoustic windows. Study completion: The patient tolerated the procedure well. Transthoracic echocardiography. M-mode, complete 2D, complete spectral Doppler, and color Doppler. Height: Height: 69in. Weight: Weight: 200.6lb. Body mass index: BMI: 29.7kg/m^2. Body surface area: BSA: 2.07m^2. Patient status: Inpatient. CARDIAC ANATOMY LEFT VENTRICLE: The cavity size was normal. Wall thickness was increased in a pattern of mild LVH. There was concentric hypertrophy. Systolic function was normal. The estimated ejection fraction was in the range of 60% to 65%. Wall motion was normal; there were no regional wall motion abnormalities. Features are consistent with a pseudonormal left ventricular filling pattern, with concomitant abnormal relaxation and increased filling pressure (grade 2 diastolic dysfunction). AORTIC VALVE: Mildly calcified leaflets. Doppler: There was no stenosis. Mild regurgitation. Valve area: 1.48cm^2 (Vmax). Indexed valve area: 0.71cm^2/m^2 (Vmax). Peak gradient: 14mm Hg (S). MITRAL VALVE: The valve appears to be grossly normal. Doppler: There was no evidence for stenosis. Trace regurgitation. Valve area by pressure half-time: 2.97cm^2. Indexed valve area by pressure half-time: 1.43cm^2/m^2. Peak gradient: 3mm Hg (D). LEFT ATRIUM: The atrium was mildly dilated. RIGHT VENTRICLE: The cavity size was mildly dilated. PULMONIC VALVE: Not well visualized. Doppler: There was no evidence for stenosis. Trace regurgitation. TRICUSPID VALVE: The valve appears to be grossly normal. Doppler: There was no evidence for stenosis. Trace regurgitation. Peak gradient: 18mm Hg (D). PERICARDIUM: There was no pericardial effusion. Patient weight: 200.6lb _Ejection fraction:_ 65-75% _Fractional shortening:_ 32% up to 5Kg 5-11.5Kg 11.6-22.9Kg 23-45Kg 45-57Kg Aortic Root 7-13 <17 13-22 17-27 17-27 LA diam 6-13 <23 24-38 33-47 37-40 RVID 10-17 7-15 7-15 7-18 8-17 LVIDd 12-22 <32 24-38 33-47 37-40 LVPW 2-4 3-6 5-7 6-8 7-8 IVS 2-4 3-6 5-7 6-8 7-8 BASIC MEASUREMENTS ADULT NORMAL Left ventricle LV internal dimension, ED, chordal 50.3 mm 43-52 level, PLAX LV internal dimension, ES, chordal 31.8 mm 23-38 level, PLAX Fractional shortening, chordal level, 37 % >29 PLAX LV posterior wall thickness, ED 12.2 mm IVS/LVPW ratio, ED 0.99 <1.3 Ventricular septum Septal thickness, ED 12.1 mm Aortic valve Leaflet separation 20 mm 15-26 Left atrium Anterior-posterior dimension 44 mm Anterior-posterior dimension index 2.13 cm/m^2 <2.2 Right ventricle RV internal dimension, ED, PLAX *40.2 mm 19-38 BASIC MEASUREMENTS ADULT NORMAL Aortic valve Leaflet separation 20 mm 15-26 Aorta Root diameter, ED 37 mm 20-37 DOPPLER MEASUREMENTS ADULT NORMAL Aortic valve Peak velocity, S 187 cm/s Peak gradient, S 14 mm Hg Valve area, Vmax 1.48 cm^2 Valve area index, Vmax 0.71 cm^2/m^2 Regurgitant velocity, ED 430 cm/s Regurgitant deceleration 1620 cm/s^2 Regurgitant pressure half-time 779 ms Regurgitant gradient, ED 74 mm Hg Mitral valve Peak E-wave velocity 79.5 cm/s Peak A-wave velocity 76 cm/s Pressure half-time 74 ms Peak gradient, D 3 mm Hg Peak E/A ratio 1 Valve area, pressure half-time 2.97 cm^2 Valve area index, pressure half-time 1.43 cm^2/m^2 Tricuspid valve Peak gradient, D 18 mm Hg Maximal inflow velocity 215 cm/s Pulmonic valve Peak velocity, S 96.4 cm/s LEGEND: Mean values are shown as u=mean value. Asterisk (*) hernandez values outside specified normal range. Prepared and signed by Jonas Stearns [id number]
[2016-07-04] MEDS ORDERED: ASPI325T PO (17:19)
--- NOTE | 2016-07-04 17:23 | HHI.DS ---
Discharge Summary Admission Date Jul 02, 2016 at 17:59 Discharge Date: Jul 04, 2016 Admitting Diagnosis CVA (1) CVA (cerebral vascular accident) ICD Code: I63.9 Diagnosis: Principal (2) HLD (hyperlipidemia) ICD Code: E78.5 Diagnosis: Secondary (3) HTN (hypertension) ICD Code: I10 Diagnosis: Secondary (4) A-fib ICD Code: I48.91 Diagnosis: Secondary Procedures No procedures performed to the patient. Brief History - From Admission Patient is a 76-year-old male with history of coronary disease, A. fib, hypertension, hyperlipidemia, history of hemorrhagic CVA in 1995 who came in to the hospital from the [place] for evaluation of possible CVA. Patient states that on Saturday he was watching TV and all of a sudden his vision went blank and he could not see. He tried closing his eyes and tried opening it back in his vision was blurry. His vision has slowly improved and was able to see, but he noticed that he lost his peripheral vision because he is running into garcía in his house. His peripheral vision did not improve this morning. [facility], he was referred to ophthalmology for an eye exam as patient has history of glaucoma. Patient reports that he had his eyes dilated and evaluated by the mold cleaning and storage supervisor, reports that his eyes were fine, mold cleaning and storage supervisor reports concern for possible CVA. He was sent to the hospital for evaluation. Patient reports headache that started also about a few days ago but he thought it was his sinuses that has been bothering him since the previous month. Positive for dizziness, states he has chronic vertigo. Patient denies any numbness or weakness. Denies pain and discomfort. Denies SOB / dyspnea. Denies chest pain, palpitations, headaches on exam. Denies fevers, chills, n/v/d. Chest x-ray showed no acute cardiopulmonary abnormality identified. CT head showed 1. There is an area of low-density in the medial right occipital lobe. This could represent an area of recent or subacute ischemia. MRI could help determine the age and further characterized, if needed. 2. There is a cephalization versus atri of the medial inferior left cerebellum. 3. Near complete opacification of the right maxillary sinus with partial extension into the nasal cavity. Suggest correlation with clinical examination and it would be reasonable to further evaluate for elective outpatient CT. Labs showed CBC unremarkable except for elevated mono percentage of 10.8. CMP unremarkable except EGFR 59, AST 43. Troponin 0.03 CBC/BMP: 07/03/16 0453 07/03/16 0453 Significant Findings Laboratory Tests Test 07/02/16 07/03/16 07/03/16 16:30 04:53 06:00 Monocytes (%) (Auto) 10.8 % 11.4 % (0.0-8.0) (0.0-8.0) Monocytes # (Auto) 1.1 TH/MM3 (0-0.9) Estimat Glomerular Filtration 59 ML/MIN (>89) 65 ML/MIN (>89) Rate Aspartate Amino Transf 43 U/L (15-37) (AST/SGOT) Triglycerides Level 162 MG/DL (42-150) Cholesterol Level 107 MG/DL (120-200) HDL Cholesterol 31.6 MG/DL (40.0-60.0) Vitamin B12 Level 1087 PG/ML (193-986) C-Reactive Protein 0.56 MG/DL (0.00-0.30) Imaging Last Impressions Head Magnetic Resonance Angiography 07/03/16 0000 Signed Impressions: Service Date/Time: Sunday, July 03, 2016 16:13 - CONCLUSION: 1. No significant stenosis or aneurysm. 2. Normal variants as described above. Reuben Crabtree MD Carotid Artery Ultrasound 07/03/16 0000 Signed Impressions: Service Date/Time: Sunday, July 03, 2016 22:10 - CONCLUSION: 1. Calcified plaquing in both carotid systems, right greater than left. 2. However, no sonographic or Doppler findings of a hemodynamically significant stenosis. Antegrade flow in both vertebral arteries. Dilan De La Fuente MD Brain MRI 07/03/16 0000 Signed Impressions: Service Date/Time: Sunday, July 03, 2016 16:13 - CONCLUSION: 1. Acute infarct right occipital lobe. No midline shift or mass effect. 2. Old cerebellar infarcts. 3. Complete opacification right maxillary sinus. Reuben Crabtree MD Head CT 07/02/16 1630 Signed Impressions: Service Date/Time: Saturday, July 02, 2016 17:06 - CONCLUSION: 1. There is an area of low density in the medial right occipital lobe. This could represent an area of recent or subacute ischemia. MRI could help determine the age and further characterize, if needed. 2. There is a cephalization versus atri of the medial inferior left cerebellum. 3. Near-complete opacification of the right maxillary sinus with partial extension into the nasal cavity. Suggest correlation with clinical examination and it would be reasonable to further evaluate with elective outpatient CT. Juan Manuel Vines MD Chest X-Ray 07/02/16 1630 Signed Impressions: Service Date/Time: Saturday, July 02, 2016 16:46 - CONCLUSION: No acute cardiopulmonary abnormality is identified. Juan Manuel Vines MD PE at Discharge GENERAL: Obesity in no distress. SKIN: No rashes, ecchymoses or lesions. Cool and dry. HEAD: Atraumatic. Normocephalic. EYES: Pupils equal round and reactive. ENT: Nose without bleeding, boggy mucosa. Throat without erythema. NECK: Trachea midline. No JVD or lymphadenopathy. Supple, nontender. CARDIOVASCULAR: normal sinus rhythm, no murmur RESPIRATORY: Clear to auscultation. Breath sounds equal bilaterally. No wheezes , rales, or rhonchi. GASTROINTESTINAL: Abdomen soft, non-tender, nondistended. Bowel sounds present. MUSCULOSKELETAL: Extremities without clubbing, cyanosis, or edema. NEUROLOGICAL: Awake and alert. no focal deficits. Hospital Course This is a pleasant 76 y/o male with CAD, Atrial Fibrillation, Hypertension, Hyperlipidemia Hemorrhagic CVA in 1995, came to ER for evaluation of probable CVA, had sudden loss of vision, continued with blurred vision, [facility] has [facility] of Gl[facility], he was seen by Ophthalmology specialist at [place] who reported concern for CVA and sent the patient to ER, Patient denies any numbness or weakness. Denies pain and discomfort. Denies SOB/ dyspnea. Denies chest pain, palpitations, headaches on exam. Denies fevers, chills, n/v/d. Chest x-ray showed no acute cardiopulmonary abnormality identified. CT head showed 1. There is an area of low-density in the medial right occipital lobe. This could represent an area of recent or subacute ischemia. Near complete opacification of the right maxillary sinus with partial extension into the nasal cavity. he will need to follow with ENT at discharge. Seen in his bedroom and discussed with nurse Miss Pintoi stable awaiting final recommendations by Neurology specialist for discharge. Assessment and Plan (1) CVA (cerebral vascular accident) ICD Code: I63.9 Status: Acute (2) HLD (hyperlipidemia) ICD Code: E78.5 Status: Chronic (3) HTN (hypertension) ICD Code: I10 Status: Chronic (4) A-fib ICD Code: I48.91 Status: Chronic 1. Right occipital lobe CVA asked for MRI, awaiting recommendations by Neurology specialist, CXR showed no acute Cardiopulmonary pathology, status post evaluation by PT/OT and ST no further management, awaiting final recommendations by Neurology specialist at this time Echocardiogram is performed. 2. CAD stable at this time 3. Total opacification of Right maxillary sinus, will need ENT specialist consult at discharge will start Amoxacillin and anti histamine and follow as outpatient. 4. Hyperlipidemia to continue home medicines. 5. Hypertension controlled. 6. Atrial Fibrillation rate controlled not on anticoagulation on admission in sinus rhythm and continue sinus rhythm. he was on Warfarin from [id number]. 7. Glaucoma continue home medicines DVT prop Lovenox 40 mg subcutaneous Q24. Okay to discharge from Neurology specialist on Aspirin 325 mg daily. Discussed with patient and with nurse Miss Akers Pt Condition on Discharge: Good Discharge Disposition: Discharge Home Discharge Time: <= 30 minutes Discharge Instructions DIET: Follow Instructions for: Heart Healthy Diet Speech Therapy-Diet Recommends: Regular Activities you can perform: Regular-No Restrictions Preston Zamarripa MD Jul 04, 2016 17:23
--- NOTE | 2016-07-04 22:19 | HHI.PR ---
Review/Management Diagnosis - Acute right occipital ischemic stroke. 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 - Hypertension. - Atrial fibrillation. Plan - Neuro checks q. four hourly. - Aspirin 325 daily - PT, OT recommendations are appreciated. - Stable from neurology stand point - Follow up with outpatient neurology in two weeks Diagnosis/Plan: Subjective Subjective Comments No acute events reported Reports improvement in the field of vision MRI brain revealed an acute right occipital ischemic stroke Normal sed rate, elevated CRP Allergies Allergies Coded Allergies Demerol (Verified Allergy, Intermediate, Hives, 07/02/16) Exam I&O / VS 07/03/16 07/03/16 07/04/16 15:00 23:00 07:00 Intake Total 480 ml Output Total 1200 ml Balance 480 ml -1200 ml Intake Oral 480 ml Output Urine Total 1200 ml # Voids 2 1 # Bowel Movements 1 Vital Signs Date Time Temp Pulse Resp B/P Pulse Ox O2 Delivery O2 Flow Rate FiO2 07/04/16 14:44 56 07/04/16 14:42 95.9 59 17 136/71 95 07/04/16 11:52 96.5 58 19 157/84 96 07/04/16 08:23 96.1 72 18 161/85 96 07/04/16 06:46 60 07/04/16 04:26 97.1 55 16 133/73 95 07/04/16 00:09 97.4 53 18 119/68 94 Exam Comments GENERAL: Well-nourished, not in acute distress HEAD, EYES, EARS, NOSE, AND THROAT: Atraumatic, normocephalic. Intact hearing. NECK: Supple. No meningeal signs of meningeal tension no carotid bruits. CARDIOVASCULAR SYSTEM: Sinus bradycardia with 2/6 systolic murmur RESPIRATORY: Clear to auscultation. No wheezes. MUSCULOSKELETAL: Moves all extremities without any edema or deformity. NEUROLOGIC: Awake, alert, oriented to time, person and place. Intact speech. Intact speech content. Cranial nerve examination with left homonymous hemianopia no nystagmus. Intact of ocular motility. Pupils are equally reacting to light. No diplopia. Intact speech. No facial drooping intact facial sensation. Intact uvula elevated palate and uvula elevation. Normal tongue normal trapezius and sternomastoid muscle. Motor system 5/5 bilateral and symmetrical. No abnormal movement. Sensory system is intact bilateral and symmetrical reflexes 2+ bilateral symmetrical. Plantar are bilaterally downgoing. Objective Radiology Results Last 72 hours Impressions Head Magnetic Resonance Angiography 07/03/16 0000 Signed Impressions: Service Date/Time: Sunday, July 03, 2016 16:13 - CONCLUSION: 1. No significant stenosis or aneurysm. 2. Normal variants as described above. Reuben Crabtree MD Carotid Artery Ultrasound 07/03/16 0000 Signed Impressions: Service Date/Time: Sunday, July 03, 2016 22:10 - CONCLUSION: 1. Calcified plaquing in both carotid systems, right greater than left. 2. However, no sonographic or Doppler findings of a hemodynamically significant stenosis. Antegrade flow in both vertebral arteries. Dilan De La Fuente MD Brain MRI 07/03/16 0000 Signed Impressions: Service Date/Time: Sunday, July 03, 2016 16:13 - CONCLUSION: 1. Acute infarct right occipital lobe. No midline shift or mass effect. 2. Old cerebellar infarcts. 3. Complete opacification right maxillary sinus. Reuben Crabtree MD Head CT 07/02/16 1630 Signed Impressions: Service Date/Time: Saturday, July 02, 2016 17:06 - CONCLUSION: 1. There is an area of low density in the medial right occipital lobe. This could represent an area of recent or subacute ischemia. MRI could help determine the age and further characterize, if needed. 2. There is a cephalization versus atri of the medial inferior left cerebellum. 3. Near-complete opacification of the right maxillary sinus with partial extension into the nasal cavity. Suggest correlation with clinical examination and it would be reasonable to further evaluate with elective outpatient CT. Juan Manuel Vines MD Chest X-Ray 07/02/16 1630 Signed Impressions: Service Date/Time: Saturday, July 02, 2016 16:46 - CONCLUSION: No acute cardiopulmonary abnormality is identified. Juan Manuel Vines MD Ossi,Naveen Kat MD Jul 04, 2016 22:19
== END 2016-07-04 17:43 | disposition home or self-care (01) | DRG 66 ==
LOC: NEPC 16:24 → NEDA 17:59 → N05A 20:12
PROVIDERS: ADMIT Internal Medicine; ATTEND Internal Medicine
DX: I63.9 Cerebral infarction, unspecified (principal); H53.462 Homonymous bilateral field defects, left side; I10 Essential (primary) hypertension; I44.0 Atrioventricular block, first degree; H40.9 Unspecified glaucoma; E78.5 Hyperlipidemia, unspecified; Z79.01 Long term (current) use of anticoagulants; G89.29 Other chronic pain; I25.10 Atherosclerotic heart disease of native coronary artery without angina pectoris; Z79.82 Long term (current) use of aspirin; I25.2 Old myocardial infarction
CPT/HCPCS: 70450; 70544; 70551; 71010; 80048; 80053; 80061; 80076; 81001; 82550; 82607; 83036; 84425; 84439; 84443; 84484; 85025; 85610; 85652; 85730; 86140; 93005; 93306; 93880; J1650; J7030